=== PATIENT | female | born 1955 | race Caucasian/White ===

== ENCOUNTER 2020-12-21 03:34 | Emergency (ER) | payer OTHER, SELFPAY ==
[2020-12-21] VITALS (12 sets, daily range): BP systolic 126–199; BP diastolic 81–109; PULSE 79–102; RESP 13–22; TEMP 37.1; O2SAT 95–99; BMI 28.6
--- NOTE | 2020-12-21 04:19 | ED.GENADULT ---
HPI - General Adult General Chief complaint: Hypertension Stated complaint: high blood pressure Time Seen by Provider: 12/21/20 04:19 Source: patient Mode of arrival: Ambulatory Limitations: no limitations History of Present Illness HPI narrative: 65-year-old woman with a history of inner ear disorder significant dizziness and vertigo episodes, reflux, hypertension who presents complaining of being awoken by a sense of general malaise at 1:30 this morning. She describes waves of nausea initially attributed this to her inner ear issues but then checked her blood pressure and found it to be moderately elevated. She tried to relax and noted the blood pressure went down but again was climbing back up with associated nausea and general malaise. She does not specifically describe palpitations, chest pain, orthopnea, dyspnea. She does state that she has not had a fever, cough, abdominal pain vomiting, diarrhea, hematuria or dysuria. She does not have a specific headache and has no acute neurologic findings. Related Data Home Medications Medication Instructions Recorded Confirmed lisinopril 2.5 mg tablet #0 03/28/17 epinephrine 0.3 mg/0.3 mL 0.3 mg IM ONCE 12/05/20 injection, auto-injector omeprazole 20 mg capsule,delayed 20 mg PO DAILY 12/05/20 release Previous Rx's Medication Instructions Recorded amlodipine 2.5 mg tablet 2.5 mg PO DAILY #30 tab 12/21/20 Allergies Allergy/AdvReac Type Severity Reaction Status Date / Time Penicillins [PENICILLINS] Allergy Severe hives, and Unverified 06/11/17 13:05 swell up aloe [ALOE] Allergy Intermediate aloe Unverified 06/11/17 13:05 codeine [CODEINE] Allergy Intermediate total rash Unverified 06/11/17 13:05 all over hydrochlorothiazide Allergy Intermediate Verified 12/05/20 08:45 atenolol Allergy Mild Verified 12/05/20 08:45 Sulfa (Sulfonamide Allergy Unknown Unverified 06/11/17 13:05 Antibiotics) [SULFA (SULFONAMIDE ANTIBIOTICS)] Review of Systems Review of Systems Narrative: Remainder of complete review of systems is otherwise unremarkable except for that included in the HPI. 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 Able to give a complete and coherent history. Well-nourished well-developed HEENT: Moist mucous membranes, normal sclera with reactive pupils, Neck: No JVD, supple Respiratory: Lungs are clear to auscultation, no wheezing no rales no rhonchi. Full and symmetrical air movement Cardiac: Regular rate and rhythm no murmurs no bruits Abdomen: Soft, nontender, good bowel tones, no flank pain Skin: Warm and dry, no rashes Neurologic: Grossly neurologically intact with no obvious asymmetries or abnormalities Extremities: No trauma, well perfused, no lower extremity edema Psych: Cooperative, appropriate insight and affect Initial Vital Signs Initial Vital Signs: Vital Signs Pulse Rate 101 H 12/21/20 03:43 Pulse Oximetry 97 12/21/20 03:43 Course Orders Ordered: Discontinued Medications Amlodipine Besylate (Amlodipine 5 Mg Tablet) 2.5 mg PO NOW ONE Stop: 12/21/20 06:05 Last Admin: 12/21/20 06:08 Dose: 2.5 mg Documented by: MAXIMILIAN Lisinopril (Lisinopril 20 Mg Tablet) 40 mg PO NOW ONE Stop: 12/21/20 04:34 Last Admin: 12/21/20 04:46 Dose: 40 mg Documented by: MAXIMILIAN Vital Signs Vital signs: Vital Signs - 8 hr 12/21/20 03:43 12/21/20 03:45 12/21/20 03:56 Temperature 98.7 F Pulse Rate 101 H 99 H 102 H Respiratory Rate 15 Blood Pressure 193/104 H 199/109 H Pulse Oximetry 97 97 96 12/21/20 04:00 12/21/20 04:30 Temperature Pulse Rate 91 H 86 Respiratory Rate 22 14 Blood Pressure 173/91 H 184/97 H Pulse Oximetry 95 95 Medical Decision Making Lab Data Result diagrams: 12/21/20 03:50 12/21/20 03:50 Labs: Lab Results 12/21/20 12/21/20 12/21/20 Range/Units 03:50 03:50 03:50 WBC 7.8 (4.5-11.0) X10^3/uL RBC 4.84 (4.0-5.2) X10^6/uL Hgb 13.8 (12.0-16.0) g/dL Hct 41.8 (36-46) % MCV 86.3 (80-100) fL MCH 28.6 (26-34) PG MCHC 33.1 (30-36) % RDW 12.7 (11.6-14.8) % Plt Count 291 (150-400) X10^3/uL Neut % (Auto) 64.6 (50-75) % Lymph % (Auto) 25.5 (25-40) % [place] % (Auto) 6.8 (3-14) % Eos % (Auto) 2.2 (2-4) % Baso % (Auto) 0.9 (0-2) % Neut # (Auto) 5000 (0576-8594) /uL Lymph # (Auto) 2000 (1354-3128) /uL [place] # (Auto) 500 (0-900) /uL Eos # (Auto) 200 (0-450) /uL Baso # (Auto) 100 (0-100) /uL D-Dimer < 200 (<230) ng/mL Sodium 139 (137-145) mmol/L Potassium 3.7 (3.4-5.1) mmol/L Chloride 104 (98-107) mmol/L Carbon Dioxide 25 (22-32) mmol/L BUN 19 H (7-17) mg/dL Creatinine 0.95 (0.52-1.04) mg/dL Estimated GFR 59.2 L (>60) mL/min BUN/Creatinine Ratio 20.0 (6-22) Glucose 126 H (80-110) mg/dL Calcium 9.6 (8.4-10.2) mg/dL Magnesium 2.0 (1.6-2.3) mg/dL Total Bilirubin 0.2 (0.2-1.3) mg/dL AST 43 H (14-36) IU/L ALT 55 H (<35) IU/L Alkaline Phosphatase 123 (38-126) U/L Troponin I < 0.012 (0.01-0.034) ng/mL Total Protein 7.4 (6.3-8.2) g/dL Albumin 4.5 (3.5-5.0) g/dL Globulin 2.9 (1.7-4.1) g/dL Albumin/Globulin Ratio 1.6 (1.0-2.8) 12/21/20 Range/Units 06:10 WBC (4.5-11.0) X10^3/uL RBC (4.0-5.2) X10^6/uL Hgb (12.0-16.0) g/dL Hct (36-46) % MCV (80-100) fL MCH (26-34) PG MCHC (30-36) % RDW (11.6-14.8) % Plt Count (150-400) X10^3/uL Neut % (Auto) (50-75) % Lymph % (Auto) (25-40) % [place] % (Auto) (3-14) % Eos % (Auto) (2-4) % Baso % (Auto) (0-2) % Neut # (Auto) (0310-6870) /uL Lymph # (Auto) (3107-9283) /uL [place] # (Auto) (0-900) /uL Eos # (Auto) (0-450) /uL Baso # (Auto) (0-100) /uL D-Dimer (<230) ng/mL Sodium (137-145) mmol/L Potassium (3.4-5.1) mmol/L Chloride (98-107) mmol/L Carbon Dioxide (22-32) mmol/L BUN (7-17) mg/dL Creatinine (0.52-1.04) mg/dL Estimated GFR (>60) mL/min BUN/Creatinine Ratio (6-22) Glucose (80-110) mg/dL Calcium (8.4-10.2) mg/dL Magnesium (1.6-2.3) mg/dL Total Bilirubin (0.2-1.3) mg/dL AST (14-36) IU/L ALT (<35) IU/L Alkaline Phosphatase (38-126) U/L Troponin I < 0.012 (0.01-0.034) ng/mL Total Protein (6.3-8.2) g/dL Albumin (3.5-5.0) g/dL Globulin (1.7-4.1) g/dL Albumin/Globulin Ratio (1.0-2.8) Imaging Data Chest x-ray: Radiologist's Impression: No acute pulmonary process ECG Data Interpretation: Sinus rhythm at a rate of 95 Normal intervals, normal axis Nonspecific lateral ST changes MDM Narrative Medical decision making narrative: 65-year-old woman with complaints of general malaise and a sense that something isn't right. Noted blood pressure to be slightly elevated and this was concerning for her. Workup initially is unremarkable. She has slightly elevated transaminases with no comparison labs at this time. Blood pressure is starting to trend down slightly however still elevated after her oral lisinopril dose. Will add 25 mg of hydrochlorothiazide. Will also recheck a 2nd troponin. If the 2nd troponin is unremarkable she will be discharged home to follow-up with her primary care physician. Will have her continue the lisinopril and the additional 20 mg of hydrochlorothiazide with stable blood pressure track to review with her primary care physician at the next visit scheduled. At this time I do not have a full explanation for the general malaise sensation that she has however no evidence of infection, cardiomyopathy, pneumothorax, acute coronary syndrome, stroke or other life-threatening etiology or reason to stay in the hospital this evening. She is safe for home discharge Discharge Plan Departure Patient Disposition: Home Clinical Impression: Malaise, Vertigo Hypertension Qualifiers: Hypertension type: primary hypertension Qualified Code(s): I10 - Essential (primary) hypertension Instructions: DI for High Blood Pressure Activity Restrictions/Additional Instructions: Thank you for coming in today I did not find any life-threatening explanations for the symptoms that your noticing. There is no evidence of acute heart attack, infection, significant anemia or other source of blood loss. Your blood pressure was still slightly elevated. Please continue your current dose of lisinopril and to that add 2.5 mg of amlodipine. I have given you a prescription for this. Please check daily blood pressures and keep a log to review with your primary care physician. You will need to schedule an appointment in the near future with your primary care physician. If you have worsening signs or symptoms, please feel free to return to the ER Prescriptions: New amlodipine 2.5 mg tablet 2.5 mg PO DAILY Qty: 30 RF: 0 No Action lisinopril 2.5 mg tablet Qty: 0 RF: 0 epinephrine 0.3 mg/0.3 mL auto-injector 0.3 mg IM ONCE RF: 0 omeprazole 20 mg capsule,delayed release(DR/EC) 20 mg PO DAILY RF: 0
--- NOTE | 2020-12-21 04:32 | DI.RAD.S_ITS ---
PROCEDURE: XR CHEST 1V INDICATIONS: dyspnea TECHNIQUE: One view of the chest was acquired. COMPARISON: None. FINDINGS: Surgical changes and devices: None. Lungs and pleura: Linear left basilar opacities likely represent atelectasis. Lungs are otherwise clear. No pleural effusions or pneumothorax. Mediastinum: Mediastinal contours appear normal. Heart size is normal. Bones and chest wall: No suspicious bony lesions. Overlying soft tissues appear unremarkable. IMPRESSION: 1. No definite acute cardiopulmonary disease. Dictated by: Krishna Santana M.D. on 12/21/2020 at 8:05 Approved by: Krishna Santana M.D. on 12/21/2020 at 8:06
[2020-12-21 04:42] LABS: Add Manual Diff / Slide Review NO; Basophils Absolute Auto 100 /uL (0-100); Basophils Percent Auto 0.9 % (0-2); Eosinophils Absolute Auto 200 /uL (0-450); Eosinophils Percent Auto 2.2 % (2-4); Hematocrit 41.8 % (36-46); Hemoglobin 13.8 g/dL (12.0-16.0); Lymphocytes Absolute Auto 2000 /uL (1100-4500); Lymphocytes Percent Auto 25.5 % (25-40); Mean Corpuscular HGB Conc 33.1 % (30-36); Mean Corpuscular Hemoglobin 28.6 PG (26-34); Mean Corpuscular Volume 86.3 fL (80-100); Monocytes Absolute Auto 500 /uL (0-900); Monocytes Percent Auto 6.8 % (3-14); Neutrophils Absolute Auto 5000 /uL (1500-7000); Neutrophils Percent Auto 64.6 % (50-75); Platelet Count 291 X10^3/uL (150-400); Red Blood Cell Count 4.84 X10^6/uL (4.0-5.2); Red Cell Distribution Width 12.7 % (11.6-14.8); White Blood Cell Count 7.8 X10^3/uL (4.5-11.0)
[2020-12-21] MEDS: lisinopriL 20 MG TABLET 40 MG PO (04:46)
[2020-12-21 04:47] LABS: D Dimer < 200 ng/mL (<230)
[2020-12-21 04:49] LABS: Alanine Aminotransferase 55 IU/L (<35); Albumin 4.5 g/dL (3.5-5.0); Albumin Globulin Ratio 1.6 (1.0-2.8); Alkaline Phosphatase 123 U/L (38-126); Aspartate Aminotransferase 43 IU/L (14-36); Bilirubin Total 0.2 mg/dL (0.2-1.3); Blood Urea Nitrogen 19 mg/dL (7-17); Calcium 9.6 mg/dL (8.4-10.2); Carbon Dioxide 25 mmol/L (22-32); Chloride 104 mmol/L (98-107); Estimated Glomerular Filt Rate 59.2 mL/min (>60); Globulin 2.9 g/dL (1.7-4.1); Glucose 126 mg/dL (80-110); HEMOLYSIS 21 (0-50); Potassium 3.7 mmol/L (3.4-5.1); Sodium 139 mmol/L (137-145); Total Protein 7.4 g/dL (6.3-8.2)
[2020-12-21 05:00] LABS: Troponin I < 0.012 ng/mL (0.01-0.034)
[2020-12-21] MEDS: AMLODIPINE 5 MG TABLET 2.5 MG PO (06:08)
[2020-12-21 07:12] LABS: Troponin I < 0.012 ng/mL (0.01-0.034)
== END 2020-12-21 07:47 | disposition home or self-care (01) ==
PROVIDERS: Emergency Provider Emergency Medicine
DX: I10 Essential (primary) hypertension (principal); R53.81 Other malaise; R42 Dizziness and giddiness
CPT/HCPCS: 36415; 71045; 80053; 83735; 84484; 85025; 85379; 93005; 93010; 99284

== ENCOUNTER → 2022-10-31 15:53 | Outpatient (CLI) | payer OTHER, SELFPAY | PROVIDERS: Visit Provider Nurse Practitioner Family | DX: R30.0 Dysuria (principal) | CPT/HCPCS: 87077; 87086; 87186 ==

== ENCOUNTER → 2023-11-10 09:51 | Outpatient (CLI) | payer OTHER, SELFPAY | PROVIDERS: Visit Provider Physician Assistant Medical | DX: R30.0 Dysuria (principal) | CPT/HCPCS: 87086 ==